=== PATIENT | female | born 1970 | race Caucasian/White ===

== ENCOUNTER 2016-12-06 23:48 | Emergency (ER) | payer SELFPAY ==
[~2016-12-06] VITALS: Ht 160 cm; Wt 54.4 kg
[2016-12-07 00:08] VITALS: BP 154/72
[2016-12-07] MEDS ORDERED: CIPR500T94 PO (00:27)
--- NOTE | 2016-12-07 00:27 | PHYS DOC ---
Past Medical History Past Medical History: UTI Additional Past Medical Histor: Chronic hand pain Past Surgical History: Hysterectomy, Tonsillectomy Additional Past Surgical Histo: hand Alcohol Use: None Drug Use: None Adult General Chief Complaint Chief Complaint: FOOT INJURY PAIN [facility] HPI Patient is a 46 year old female presents to the emergency department stating that approximately one to 2 weeks ago she stepped on a nail. She states that she pulled the nail out of her shoe in her foot. She states that she thinks her last tetanus shot was approximately 8-9 years ago. Patient states that she has been having increased pain in the right palm of the foot where she stepped on the nail. She is also stating that she feels that she has having bilateral lower jaw pain and discomfort. She states that this just started 1-2 days ago. She denies any fever, chills or any nausea or vomiting. Patient states that she' s been taken Tylenol for pain as well as oxycodone which she has for left hand pain. Patient denies any numbness or tingling into the foot. She does states that she has increased pain with ambulation. Review of Systems Review of Systems Constitutional: Denies fever or chills [] Eyes: Denies change in visual acuity, redness, or eye pain [] HENT: Denies nasal congestion or sore throat [] Respiratory: Denies cough or shortness of breath [] Cardiovascular: No additional information not addressed in HPI [] GI: Denies abdominal pain, nausea, vomiting, bloody stools or diarrhea [] : Denies dysuria or hematuria [] Musculoskeletal: Denies back pain or joint pain [] Integument: Denies rash or skin lesions. Complaint of puncture wound right foot. Neurologic: Denies headache, focal weakness or sensory changes [] Endocrine: Denies polyuria or polydipsia [] Allergies Allergies Allergies Coded Allergies Type Severity Reaction Last Updated Verified tramadol Allergy Unknown 12/06/16 Yes Physical Exam Physical Exam Constitutional: Well developed, well nourished, no acute distress, non-toxic appearance. [] HENT: Normocephalic, atraumatic, bilateral external ears normal, oropharynx moist, no oral exudates, nose normal. Bilateral tympanic membranes appear to be normal. Throat normal with no redness no exudate no erythematous. Patient was noted to have bilateral lower dental area that appears to have decayed teeth down to the gumline. The gumline's appear to be slightly red no drainage or discharge noted from the area. Eyes: PERRLA, EOMI, conjunctiva normal, no discharge. [] Neck: Normal range of motion, no tenderness, supple, no stridor. [] Cardiovascular:Heart rate regular rhythm, no murmur [] Lungs & Thorax: Bilateral breath sounds clear to auscultation [] Skin: Warm, dry, no erythema, no rash. Patient with a puncture wound that appears to be white around the puncture area to the right or the foot. No drainage or discharge from the site. Back: No tenderness Extremities: No tenderness, no cyanosis, no clubbing, ROM intact, no edema. [] Neurologic: Alert and oriented X 3, normal motor function, normal sensory function, no focal deficits noted. [] Psychologic: Affect normal, judgement normal, mood normal. [] Current Patient Data Vital Signs Vital Signs Date Time Temp Pulse Resp B/P (MAP) Pulse Ox O2 Delivery O2 Flow Rate FiO2 12/07/16 00:08 97.8 59 16 99 Room Air 97.8 EKG EKG [] Radiology/Procedures Radiology/Procedures [] Course & Med Decision Making Course & Med Decision Making Pertinent Labs and Imaging studies reviewed. (See chart for details) X-rays were negative for any foreign bodies noted into the foot area. Patient will be placed on Cipro with recommendations to continue to use home medications that she has for pain. Recommended warm Epsom salt soaks to the foot 4 times a day for 20 minutes at a time. Also recommended warm salt water mouth rinses 5 times a day. Patient was also recommended to follow-up with a dentist within the next week. Signs and symptoms to return back to emergency department has been provided. No abscess was noted in the dental area. [] Dragon Disclaimer Dragon Disclaimer This electronic medical record was generated, in whole or in part, using a voice recognition dictation system. Departure Departure Impression: Primary Impression: Puncture wound of right foot Additional Impression: Pain, dental Disposition: 01 HOME, SELF-CARE Condition: STABLE Referrals: DUSTIN ARCINIEGA MD (PCP) Patient Instructions: Dental Pain, [id number], Puncture Wound, [id number] Additional Instructions: Your x-rays were negative for any foreign bodies noted in the foot. You've been updated with her tetanus immunization. Warm Epsom salt soaks to the right foot 4 times a day for 20 minutes at a time. Warm salt water mouth rinses 5 times a day. Antibiotics as prescribed. Continue your home medications for pain. Follow-up with your dentist within the next week. Follow-up through primary care physician in the next 3-5 days. Return back to emergency prior signs and symptoms of become worse. Scripts Ciprofloxacin Hcl (CIPRO) 500 Mg Tablet 1 TAB PO BID, #14 TAB Prov: PIYUSH TORRES APRN 12/07/16 Problem Qualifiers PIYUSH TORRES APRN Dec 07, 2016 00:27
[2016-12-07] MEDS ORDERED: DIPHTH,PERTUSS(ACELL),TET TOX 0.5 ML DISP.SYRIN. VAX IM ONE (01:00)
--- NOTE | 2016-12-07 08:29 | RAD ---
Right FOOT AP LATERAL OBLIQUE Clinical Indication: stepped on a nail, ball of foot 2-3 weeks ago. Increasing pain since. Comparison: None. Findings: There is no acute fracture or dislocation. The bony alignment is normal. Mineralization is normal. No bony erosion. There is no soft tissue abnormality. No radiopaque foreign body is seen. IMPRESSION: No acute bone abnormality.
== END 2016-12-07 00:53 | disposition home or self-care (01) ==
LOC: ER 23:48
DX: S91.331A Puncture wound without foreign body, right foot, initial encounter (principal); K08.89 Other specified disorders of teeth and supporting structures; R68.84 Jaw pain; G89.29 Other chronic pain; M79.642 Pain in left hand; Z88.6 Allergy status to analgesic agent; W45.0XXA Nail entering through skin, initial encounter; Y93.89 Activity, other specified; Y99.8 Other external cause status; Y92.89 Other specified places as the place of occurrence of the external cause
CPT/HCPCS: 73630; 90471; 90715; 99284-25